=== PATIENT | male | born 1975 | race Caucasian/White ===

== ENCOUNTER 2024-07-05 10:07 | Outpatient (CLI) | payer OTHER, SELFPAY ==
--- NOTE | 2024-07-05 | ECG_ITS ---
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 EXERCISE DATA: The patient was exercised by Rahul protocol. Baseline heart rate was 57 beats per minute. Baseline blood pressure was 131/86 millimeters of mercury. Target heart rate was 172 beats per minute. Maximum heart rate achieved was 155, which was 90 % of the target heart rate. Maximum blood pressure was 174/96 millimeters of mercury. Total exercise time was 8 minutes 46 seconds. Maximum METs achieved was 10.2, maximum VO2 was 35.7. The reason for ending the test was maximum effort achieved. The patient complained of shortness of breath during the stress test, which then resolved at the end of the test. ELECTROCARDIOGRAM: BASELINE: Sinus rhythm, left axis, interventricular conduction delay, no significant ST-T changes at the baseline noted. EXERCISE: At the peak exercise level, no significant ST-T changes suggestive of ischemia noted. RECOVERY: During the recovery period, heart rate dropped appropriately. No significant ST-T changes in the recovery suggestive of ischemia noted. CONCLUSION: 1. Exercise capacity good 2. Heart rate response was appropriate. 3. Blood pressure response was appropriate. 4. Symptoms not suggestive of ischemia. 5. Electrocardiogram portion of the stress test was not suggestive of ischemia. Electronically Signed On 07-25-2024 22:34:47 CDT by GREGORY MCCABE [email or web address]
[2024-07-05 10:45] VITALS: BMI 43.2
--- NOTE | 2024-07-05 10:49 | NMCV_ITS ---
NM raul perf SPECT r/s* [id number] Agusto Elena Age: 49 Gender: M : 1975 Exam Date: 07/05/2024 10:54 Ordering Phys: Belkys Pearson MD Technologist: KARTHIK Jaimes Exam Location: [facility] Indications: cp STRESS TEST Please see separate stress test report in [facility] for full findings IMAGE PROTOCOL Rest/Stress 1 Exercise Day Radiopharmaceutical Dose (mCi) Administration Site Administered by Rest: Tc-99m 10.6 IV Sabiha Jett, [employer] Sestamibi Stress:Tc-99m 33 IV Sabiha Jett, [employer] Sestamibi Rest: 05-Jul-2024 60 Discovery 630 Stress: 05-Jul-2024 15 Discovery 630 Radiopharmaceutical was injected at 87 % maximum heart rate. Images obtained in supine and prone position. SPECT RESULTS Technical Quality: Good Raw Data Analysis: Normal Image Corrections: No attenuation or motion correction applied Summed Stress Score: 2 Summed Rest Score: 3 Summed Difference Score: 0 PERFUSION FINDINGS Small area of fixed perfusion defect was noted in distal inferolateral wall of the left ventricle in the absence of wall motion abnormality could be artifact however cannot rule out small myocardial infarction without ischemia. FUNCTIONAL RESULTS (calculated via Gated SPECT) Stress Image LV EF (%): 64 Stress EDV (mL):118 TID: 0.67 Stress ESV (mL):42 FUNCTIONAL FINDINGS: There is normal left ventricular systolic function. IMPRESSIONS Myocardial perfusion imaging is normal. Yadiel Da Silva MD (Electronically Signed) Final Date: 06 Jul 2024 16:56 S
[2024-07-05 11:49] VITALS: BP 136/66; PULSE 95
== END 2024-07-05 10:08 | disposition home or self-care (01) ==
LOC: CDL 10:09
PROVIDERS: PCP Family Medicine; Visit Provider Family Medicine
DX: R07.9 Chest pain, unspecified (principal)
CPT/HCPCS: 36415; 78452; 93017; A9500

== ENCOUNTER → 2024-08-23 12:27 | Outpatient (BNVA) | payer OTHER, SELFPAY | PROVIDERS: PCP Family Medicine; Visit Provider Internal Medicine | DX: R07.89 Other chest pain (principal); I10 Essential (primary) hypertension; E78.5 Hyperlipidemia, unspecified; R73.03 Prediabetes; Z82.49 Family history of ischemic heart disease and other diseases of the circulatory system; R07.9 Chest pain, unspecified; R06.02 Shortness of breath | CPT/HCPCS: 93005; 99204 ==

== ENCOUNTER 2024-09-22 06:46 | Outpatient (CLI) | payer OTHER, SELFPAY ==
--- NOTE | 2024-09-22 07:15 | USCV_ITS ---
Agusto Elena Age: 49 Gender: M : 1975 Exam Date: 09/22/2024 06:55 Ordering Phys: Michele Humphries M.D ([email or web address]) Technologist: LUCIO [place] [facility] [place]: SoB, CP BP: 138 / 90 HR: 64 Rhythm: Sinus Technical Quality: Adequate MEASUREMENTS (Male / Female) Normal Values 2D ECHO LV Diastolic Diameter PLAX 5.6 cm 4.2 - 5.9 / 3.9 - 5.3 cm IVS Diastolic Thickness 1.7 cm 0.6 - 1.0 / 0.6 - 0.9 cm IVS Systolic Thickness 2.3 cm LVPW Diastolic Thickness 1.6 cm 0.6 - 1.0 / 0.6 - 0.9 cm LVPW Systolic Thickness 1.4 cm LVOT Diameter 2.2 cm LV Ejection Fraction 2D Teich 63.8 % LV Ejection Fraction MOD 4C 66.5 % LV Ejection Fraction MOD 2C 60.8 % LV Ejection Fraction 2C AL 62.7 % LA Diameter 4.6 cm RA Systolic Volume 4C AL 89.3 ml RA Systolic Volume 4C MOD 85.0 ml LA Sys Volume AL 67.9 cm cubed LA Sys Volume Index AL 24.7 cm cubed/m squared M-MODE LA Ao Ratio MM 1.2 AV Cusp Separation MM 2.4 cm DOPPLER AV Peak Velocity 108.0 cm/s LVOT Peak Velocity 119.0 cm/s AV Area Cont Eq vti 4.9 cm squared AV Area Cont Eq pk 4.0 cm squared MV Peak Velocity 72.0 cm/s MV Area PHT 3.5 cm squared Mitral E to A Ratio 1.0 TR Peak Velocity 159.0 cm/s TR Peak Gradient 10.1 mmHg TV Peak E Velocity 75.0 cm/s PV Peak Velocity 114.0 cm/s FINDINGS Left Ventricle Normal left ventricular size, systolic function and wall thickness, with no regional wall motion abnormalities. Left ventricular ejection fraction is estimated at 60 %. Grade I/IV diastolic dysfunction (abnormal relaxation filling pattern), normal to mildly elevated filling pressures. Right Ventricle The right ventricle is normal in size and function. Right Atrium The right atrium is normal in size. Left Atrium The left atrium is normal in size. Mitral Valve Structurally normal mitral valve without significant stenosis or prolapse. There is no mitral regurgitation. Aortic Valve Structurally normal aortic valve without significant sclerosis or stenosis. There is no aortic regurgitation. Tricuspid Valve Structurally normal tricuspid valve without significant stenosis or regurgitation. Pulmonary artery systolic pressure is normal. Pulmonic Valve Structurally normal pulmonic valve without significant stenosis. There is no pulmonic regurgitation. Pericardium Normal pericardium without effusion. Aorta Normal ascending aorta dimension. IVC The inferior vena cava appears normal. CONCLUSIONS Normal left ventricular size, systolic function and wall thickness, with no regional wall motion abnormalities. Left ventricular ejection fraction is estimated at 60 %. Grade I/IV diastolic dysfunction (abnormal relaxation filling pattern), normal to mildly elevated filling pressures. There is no pericardial effusion. No significant valve abnormalities. Right atrial pressure is around 5 mm of mercury. Yadiel Da Silva MD (Electronically Signed) Final Date: 24 September 2024 17:52 S
== END 2024-09-22 06:47 | disposition home or self-care (01) ==
LOC: RAD 06:47
PROVIDERS: PCP Family Medicine; Visit Provider Internal Medicine
DX: R07.9 Chest pain, unspecified (principal); R06.02 Shortness of breath; I51.89 Other ill-defined heart diseases
CPT/HCPCS: 93306